=== PATIENT | male | born 1975 | race Caucasian/White ===

== ENCOUNTER 2019-11-03 17:49 | Emergency (ER) | payer OTHER ==
[~2019-11-03] VITALS: Ht 177.8 cm; Wt 77.1 kg
[~2019-11-03 17:49] MED LIST: NORCO 5-325 TA1 EAC1 PO; ONDANSETRON HCL4 M2 PO; PROMETHAZINE12.5 M4 RE; TESSALON200 MG PO; ZPAK PO
[2019-11-03] MEDS ORDERED: TUMS200 MG PO (18:06)
[2019-11-03 18:36] LABS: ABSOLUTE BASOPHILS 0.1 thou/uL (0.0-0.2); ABSOLUTE EOSINOPHILS 0.2 thou/uL (0.0-0.7); ABSOLUTE LYMPHOCYTES 2.2 thou/uL (0.8-5.3); ABSOLUTE MONOCYTES 0.9 thou/uL (0.0-1.2); ABSOLUTE NEUTROPHILS 5.3 thou/uL (1.6-8.1); BASOPHILS 0.7 %; EOSINOPHILS 1.7 %; HEMATOCRIT 37.9 % (42.0-52.0); LYMPHOCYTES 25.8 %; MCH 30.5 pg (26.0-34.0); MCHC 34.4 g/dL (28.0-37.0); MCV 88.7 fL (80.0-100.0); MONOCYTES 10.5 %; NUCLEATED RBCS 0 /100WBC; PLATELET COUNT* 300 thou/uL (150-400); POLYS 61.3 %; RBC 4.28 mil/uL (4.50-6.00); RDW-CV 14.6 % (10.5-14.5); WBC 8.7 thou/uL (4.0-11.0)
[2019-11-03] MEDS ORDERED: OMEPRAZOLE 20 M20 M1 PO (18:42)
[2019-11-03] MEDS ORDERED: CARAFATE1 GM/10 ML PO (18:42)
[2019-11-03 18:50] VITALS: BP 128/79
--- NOTE | 2019-11-04 09:29 | EKG ---
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: : [id number] Requested By: Melissa Celis Order Number: [id number] MD: Tre Suarez Measurements Intervals [place] Rate: 107 P: 52 [place]: 161 QRS: 11 QRSD: 80 T: 56 QT: 310 QTc: 414 Interpretive Statements Sinus tachycardia Probable left atrial enlargement Abnormal R-wave progression, early transition No previous ECG available for comparison Electronically Signed On 11-04-2019 9:27:58 CDT by Tre Suarez [email or web address] <ELECTRONICALLY SIGNED> By: Tre Suarez MD, [facility] 11/04/19926 1826 182 Tre Suarez MD, [facility] /EPI
== END 2019-11-03 18:50 | disposition left against medical advice (07) ==
LOC: M.ERS 17:49
PROVIDERS: Nurse Practitioner Family
DX: R12 Heartburn (principal); F15.10 Other stimulant abuse, uncomplicated; F17.210 Nicotine dependence, cigarettes, uncomplicated